=== PATIENT | female | born 1990 | race Caucasian/White ===

== ENCOUNTER 2018-10-03 23:55 | Emergency (ER) | payer MEDICAID ==
--- NOTE | 2018-10-04 00:46 | EDM.PDOC ---
ED HPI GENERAL MEDICAL PROBLEM - General Chief Complaint: General Stated Complaint: ALLERGIC REACTION TO BLACK MOLD Time Seen by Provider: 10/04/18 00:00 Source of Information: Reports: Patient History Limitations: Reports: No Limitations - History of Present Illness INITIAL COMMENTS - FREE TEXT/NARRATIVE: Patient comes into the emergency department with complain of mold exposure. Patient states that she was mold exposure in her rental property. That they recently moved in. She does not believe the house was inspected correctly prior to moving and they were not notified of any mold concerns. However shortly after moving into the home they noticed upper respiratory symptoms including runny nose, congestion, sore throat, wheezing, and the patient states that she' s had confusion intermittently. The patient's significant other did get checked out in the clinic for mold-related incident as well. Patient denies any shortness of breath, chest pain, numbness, tingling, headache, or blurred vision. Onset: Gradual Generalized Pain Score (Numeric/FACES): 6 - Related Data Allergies Allergy/AdvReac Type Severity Reaction Status Date / Time Penicillins Allergy Other Verified 10/03/18 23:56 Home Meds: Home Meds . [Unable to Verify Home Med List] 10/03/18 [History] Past Medical History Musculoskeletal History: Reports: Fibromyalgia, Other (See Below) Other Musculoskeletal History: left knee problems Social & Family History - Tobacco Use Smoking Status *Q: Current Every Day Smoker Years of Tobacco use: 15 Packs/Tins Daily: 0.2 ED ROS GENERAL - Review of Systems Review Of Systems: See Below Constitutional: Reports: No Symptoms HEENT: Reports: No Symptoms Respiratory: Reports: Pleuritic Chest Pain, Cough, Sputum Cardiovascular: Reports: No Symptoms Endocrine: Reports: No Symptoms GI/Abdominal: Reports: No Symptoms : Reports: No Symptoms Musculoskeletal: Reports: No Symptoms Skin: Reports: No Symptoms Neurological: Reports: No Symptoms Psychiatric: Reports: No Symptoms Hematologic/Lymphatic: Reports: No Symptoms Immunologic: Reports: No Symptoms ED EXAM, GENERAL - Physical Exam Exam: See Below Exam Limited By: No Limitations General Appearance: Alert, WD/WN, No Apparent Distress Head: Atraumatic, Normocephalic Neck: Normal Inspection, Supple, Non-Tender Respiratory/Chest: No Respiratory Distress, Lungs Clear, Normal Breath Sounds, No Accessory Muscle Use, Chest Non-Tender Cardiovascular: Normal Peripheral Pulses, Regular Rate, Rhythm, No Edema, No Murmur Peripheral Pulses: 3+: Radial (L), Radial (R) GI/Abdominal: Normal Bowel Sounds, Soft, No Distention Extremities: Normal Inspection, Normal Range of Motion, Non-Tender, Normal Capillary Refill Neurological: Alert, Oriented, Normal Gait Psychiatric: Normal Affect, Normal Mood Skin Exam: Warm, Dry, Intact, Normal Color Course - Vital Signs Last Recorded V/S: Last Vital Signs Temp 36.9 C 10/03/18 23:57 Pulse 92 10/03/18 23:57 Resp 16 10/03/18 23:57 BP 125/84 10/03/18 23:57 Pulse Ox 99 10/03/18 23:57 Departure - Departure Time of Disposition: 12:30 Disposition: Home, Self-Care 01 Condition: Good Clinical Impression: Mold exposure - Discharge Information *PRESCRIPTION DRUG MONITORING PROGRAM REVIEWED*: Not Applicable *COPY OF PRESCRIPTION DRUG MONITORING REPORT IN PATIENT SARABJIT: Not Applicable Instructions: Allergies, Adult Referrals: PCP,Unobtain [Primary Care Provider] - Additional Instructions: 1. clean the area of mold 2. take an antihistamine 3. Remove yourself from the building when possible 4. Try and ventilate the area with fans and keep the window open 5. Follow up with PCP - Assessment/Plan Assessment:: 1. mold exposure Plan: 1. education regarding ways to reduce mold including cleaning, ventilation, moving, talking to the landlord and taking an antihistamine daily 2. All questions and concerns answered prior to discharge
== END 2018-10-04 00:53 | disposition home or self-care (01) ==
LOC: VM.ED 23:55
DX: Z77.120 Contact with and (suspected) exposure to mold (toxic) (principal); F17.210 Nicotine dependence, cigarettes, uncomplicated; Z88.0 Allergy status to penicillin
CPT/HCPCS: 99282-GF; 99283

== ENCOUNTER 2018-12-27 15:07 | Emergency (ER) | payer MEDICAID ==
--- NOTE | 2018-12-27 15:59 | EDM.PDOC ---
ED HPI GENERAL MEDICAL PROBLEM - General Chief Complaint: General Stated Complaint: TOOTH INFECTIONS Time Seen by Provider: 12/27/18 15:25 Source of Information: Reports: Patient History Limitations: Reports: No Limitations - History of Present Illness INITIAL COMMENTS - FREE TEXT/NARRATIVE: Patient comes in the emergency department with infected tooth. Patient went to the dentist today however was not able to get an appointment. They advised her to go to the emergency department and get a medication for the weekend so she can have her tooth extracted early next week. Patient presents here for medication management. Patient states that she has had a bad right upper mouth tooth for some time it's progressively gotten worse. Over the course of last week she's noticed increased swelling pain and discomfort. She denies having any fever, chills, nausea or vomiting. She does state that she has had an upset stomach today but she is not eaten because of the discomfort in her mouth. Onset: Sudden Improves with: Reports: Rest Worsens with: Reports: Cold Therapy, Eating Associated Symptoms: Reports: No Other Symptoms - Related Data Allergies Allergy/AdvReac Type Severity Reaction Status Date / Time Penicillins Allergy Other Verified 10/03/18 23:56 Home Meds: Home Meds Clindamycin HCl [Cleocin HCl] 300 mg PO Q8H 5 Days #15 capsule 12/27/18 [Rx] Ketorolac [Toradol] 10 mg PO Q6H PRN #20 tab 12/27/18 [Rx] Past Medical History Musculoskeletal History: Reports: Fibromyalgia, Other (See Below) Other Musculoskeletal History: left knee problems ED ROS GENERAL - Review of Systems Review Of Systems: See Below Constitutional: Reports: No Symptoms HEENT: Reports: Dental Pain. Denies: Ear Pain, Hearing Loss, Nosebleed, Throat Swelling Respiratory: Reports: No Symptoms Cardiovascular: Reports: No Symptoms Musculoskeletal: Reports: No Symptoms Skin: Reports: No Symptoms Neurological: Reports: No Symptoms ED EXAM, GENERAL - Physical Exam Exam: See Below Exam Limited By: No Limitations General Appearance: Alert, WD/WN, No Apparent Distress Eye Exam: Bilateral Eye: EOMI, PERRL Ears: Normal External Exam, Normal Canal, Hearing Grossly Normal, Normal TMs Nose: Normal Inspection, Normal Mucosa Throat/Mouth: Other (right upper mouth tooth decay with swollen tissue incisor tooth. Decay with broken tooth noted next to it. no bleeding or pus noted. Foul odor noted ) Head: Atraumatic, Normocephalic Neck: Normal Inspection, Supple, Non-Tender Respiratory/Chest: No Respiratory Distress, Lungs Clear, Normal Breath Sounds, No Accessory Muscle Use, Chest Non-Tender Neurological: Alert, Oriented Psychiatric: Normal Affect, Normal Mood Skin Exam: Warm, Dry, Intact Departure - Departure Time of Disposition: 16:00 Disposition: Home, Self-Care 01 Clinical Impression: Tooth infection - Discharge Information *PRESCRIPTION DRUG MONITORING PROGRAM REVIEWED*: Not Applicable *COPY OF PRESCRIPTION DRUG MONITORING REPORT IN PATIENT SARABJIT: Not Applicable Prescriptions: Clindamycin HCl [Cleocin HCl] 300 mg PO Q8H 5 Days #15 capsule Ketorolac [Toradol] 10 mg PO Q6H PRN #20 tab PRN Reason: Pain Instructions: Clindamycin capsules, Dental Abscess, Ketorolac tablets, Preventive Dental Care, Adult Referrals: PCP,None [Primary Care Provider] - Forms: ED Department Discharge Additional Instructions: 1. rest 2. increase water intake 3. follow up with the dentist next week as you have scheduled already 4. Take all the antibiotics as prescribed 5. Take a probiotic when taking an antibiotic. 6. Call with any questions you have - Problem List Review Problem List Initiated/Reviewed/Updated: Yes - Assessment/Plan Assessment:: 1. tooth infection/abscess Plan: 1. antibiotic and pain medication provided. 2. education provided regarding follow up
== END 2018-12-27 16:10 | disposition home or self-care (01) ==
LOC: VM.ED 15:07
DX: K04.7 Periapical abscess without sinus (principal); Z88.0 Allergy status to penicillin
CPT/HCPCS: 99282

== ENCOUNTER 2019-01-29 21:53 | Emergency (ER) | payer MEDICAID ==
[2019-01-29] MEDS ORDERED: Ondansetron 4 MG Tab.DIS PO ONE (22:07)
[2019-01-29] MEDS ORDERED: Ondansetron 4 MG/2 ML SDV IVPUSH ONE (22:10)
[2019-01-29] MEDS ORDERED: Sodium Chloride 0.9% 10 ML Syringe FLUSH PRN (22:10)
[2019-01-29] MEDS ORDERED: Sodium Chloride 0.9% 1,000 ML IV ONE (22:10)
[2019-01-29 23:09] LABS: ANION GAP 17.8 mmol/L (10-20); CHLORIDE,CL 104 mmol/L (98-107); SODIUM,NA 142 mmol/L (136-145)
[2019-01-29] MEDS ORDERED: LORazepam 1 MG Tab PO ONE (23:42)
--- NOTE | 2019-01-30 06:28 | EDM.PDOC ---
ED HPI GENERAL MEDICAL PROBLEM - General Chief Complaint: General Time Seen by Provider: 01/29/19 22:00 Source of Information: Reports: Patient History Limitations: Reports: No Limitations - History of Present Illness INITIAL COMMENTS - FREE TEXT/NARRATIVE: presents to ER with numerous complaints. She has a history of bilateral ventral hernias and is scheduled to see a surgeon for this later this month. She states that her child has been ill with nausea, vomiting, and diarrhea and she has been having to pick her up/lift her which she is not supposed to do, causing increased pain in the areas of the hernias. She states that she too has been having loose stools, nausea and vomiting. She states that she has been chill and fatigued. She states that she in anxious due to the thought of her upcoming hernia surgery. She has been seen in clinic for this hernia/abdominal pain numerous times and has had a CT scan of her abdomen recently which showed the hernias but was negative for other pathology. Onset: Today Onset Date: 01/30/19 Location: Reports: Abdomen, Generalized Quality: Reports: Ache Severity: Moderate Associated Symptoms: Reports: Diaphoresis, Fever/Chills, Nausea/Vomiting Abdominal Pain Score (Numeric/FACES): 6 - Related Data Allergies Allergy/AdvReac Type Severity Reaction Status Date / Time Penicillins Allergy Other Verified 01/29/19 22:51 Home Meds: Home Meds Cyclobenzaprine [Flexeril] 10 mg PO TID PRN 01/29/19 [History] Ibuprofen [Advil] 200 mg PO Q4H PRN 01/29/19 [History] Melatonin 3 mg PO BEDTIME PRN 01/29/19 [History] Multivitamin [Daily Multiple Vitamin] 1 each PO DAILY 01/29/19 [History] Past Medical History Gastrointestinal History: Reports: Other (See Below) Other Gastrointestinal History: Double abdominal hernias - needs surgery Musculoskeletal History: Reports: Fibromyalgia, Other (See Below) Other Musculoskeletal History: left knee problems Social & Family History - Tobacco Use Smoking Status *Q: Current Every Day Smoker Years of Tobacco use: 5 Packs/Tins Daily: 0.3 ED ROS GENERAL - Review of Systems Review Of Systems: See Below Constitutional: Reports: Fever, Chills, Fatigue HEENT: Reports: No Symptoms Respiratory: Reports: No Symptoms Cardiovascular: Reports: No Symptoms Endocrine: Reports: No Symptoms GI/Abdominal: Reports: No Symptoms : Reports: No Symptoms Musculoskeletal: Reports: No Symptoms Skin: Reports: No Symptoms Neurological: Reports: No Symptoms Psychiatric: Reports: No Symptoms Hematologic/Lymphatic: Reports: No Symptoms Immunologic: Reports: No Symptoms ED EXAM, GENERAL - Physical Exam Exam: See Below Exam Limited By: No Limitations General Appearance: Alert, WD/WN, No Apparent Distress Throat/Mouth: Normal Inspection, Normal Lips, Normal Teeth, Normal Gums, Normal Oropharynx, Normal Voice, No Airway Compromise Head: Atraumatic, Normocephalic Neck: Normal Inspection, Supple, Non-Tender, Full Range of Motion Respiratory/Chest: No Respiratory Distress, Lungs Clear, Normal Breath Sounds, No Accessory Muscle Use, Chest Non-Tender Cardiovascular: Normal Peripheral Pulses, Regular Rate, Rhythm, No Edema, No Gallop, No JVD, No Murmur, No Rub Peripheral Pulses: 4+: Radial (R) GI/Abdominal: Normal Bowel Sounds, Soft, No Distention, No Mass, Tender, Other ( abdomen obese, otherwise negative abdominal exam. No rebound or guarding.). No : Guarding, Rigid, Rebound, Mass (Female) Exam: Deferred Rectal (Female) Exam: Deferred Back Exam: Normal Inspection, Full Range of Motion Extremities: Normal Inspection, Normal Range of Motion, Non-Tender, No Pedal Edema Neurological: Alert, Oriented, CN II-XII Intact Skin Exam: Warm, Dry, Intact Course - Vital Signs Last Recorded V/S: Last Vital Signs Temp 37.2 C 01/29/19 22:00 Pulse 99 01/29/19 22:00 Resp 16 01/29/19 22:00 BP 132/80 01/29/19 22:00 Pulse Ox 99 01/29/19 22:00 - Orders/Labs/Meds Orders: Active Orders 24 hr Category Date Time Status EKG Documentation Completion [RC] STAT Care 01/29/19 21:59 Active Abdomen Series w Chest 1V [CR] Stat Exams 01/29/19 22:00 Taken Peripheral IV Insertion Adult [OM.PC] Routine Oth 01/29/19 22:10 Ordered Labs: Laboratory Tests 01/29/19 01/29/19 01/29/19 Range/Units 22:29 22:29 22:29 WBC (4.0-10.0) x10^3/uL RBC (4.00-5.50) x10^6/uL Hgb (12.0-16.0) g/dL Hct (33.0-47.0) % MCV (78.0-93.0) fL MCH (26.0-32.0) pg MCHC (32.0-36.0) g/dL RDW Coeff of Ting (10.0-15.0) % Plt Count (130-400) x10^3/uL Neut % (Auto) (50.0-80.0) % Lymph % (Auto) (25.0-50.0) % Pickett % (Auto) (2.0-11.0) % Eos % (Auto) (0.0-4.0) % Baso % (Auto) (0.2-1.2) % PT 10.3 (10.0-12.8) SEC INR 0.9 L (2.0-3.5) D-Dimer, Quantitative < 0.19 (<=0.58) mg/LFEU Sodium 142 (136-145) mmol/L Potassium 3.8 (3.5-5.1) mmol/L Chloride 104 (98-107) mmol/L Carbon Dioxide 24 (21-32) mmol/L Anion Gap 17.8 (10-20) mmol/L BUN 17 (7-18) mg/dL Creatinine 0.9 (0.55-1.02) mg/dL Est Cr Clr Drug Dosing 78.67 mL/min Estimated GFR (MDRD) > 60 Glucose 89 (74-106) mg/dL Lactic Acid (0.4-2.0) mmol/L Calcium 9.1 (8.5-10.1) mg/dL Corrected Calcium 9.18 (8.5-10.1) mg/dL Phosphorus 3.2 (2.6-4.7) mg/dL Magnesium 1.8 (1.8-2.4) mg/dL Total Bilirubin 0.7 (0.2-1.0) mg/dL AST 12 L (15-37) U/L ALT 27 (14-59) U/L Alkaline Phosphatase 39 L (46-116) U/L Troponin I < 0.017 (<=0.056) ng/mL C-Reactive Protein < 0.2 (<=0.9) mg/dL Total Protein 7.4 (6.4-8.2) g/dL Albumin 3.9 (3.4-5.0) g/dL Globulin 3.5 Albumin/Globulin Ratio 1.11 TSH, Ultra Sensitive 7.998 H (0.358-3.74) uIU/mL 01/29/19 01/29/19 Range/Units 22:29 22:29 WBC 7.0 (4.0-10.0) x10^3/uL RBC 4.66 (4.00-5.50) x10^6/uL Hgb 14.8 (12.0-16.0) g/dL Hct 42.5 (33.0-47.0) % MCV 91.2 (78.0-93.0) fL MCH 31.8 (26.0-32.0) pg MCHC 34.8 (32.0-36.0) g/dL RDW Coeff of Ting 11.9 (10.0-15.0) % Plt Count 205 (130-400) x10^3/uL Neut % (Auto) 58.4 (50.0-80.0) % Lymph % (Auto) 30.3 (25.0-50.0) % Pickett % (Auto) 8.9 (2.0-11.0) % Eos % (Auto) 2.1 (0.0-4.0) % Baso % (Auto) 0.3 (0.2-1.2) % PT (10.0-12.8) SEC INR (2.0-3.5) D-Dimer, Quantitative (<=0.58) mg/LFEU Sodium (136-145) mmol/L Potassium (3.5-5.1) mmol/L Chloride (98-107) mmol/L Carbon Dioxide (21-32) mmol/L Anion Gap (10-20) mmol/L BUN (7-18) mg/dL Creatinine (0.55-1.02) mg/dL Est Cr Clr Drug Dosing mL/min Estimated GFR (MDRD) Glucose (74-106) mg/dL Lactic Acid 0.8 (0.4-2.0) mmol/L Calcium (8.5-10.1) mg/dL Corrected Calcium (8.5-10.1) mg/dL Phosphorus (2.6-4.7) mg/dL Magnesium (1.8-2.4) mg/dL Total Bilirubin (0.2-1.0) mg/dL AST (15-37) U/L ALT (14-59) U/L Alkaline Phosphatase (46-116) U/L Troponin I (<=0.056) ng/mL C-Reactive Protein (<=0.9) mg/dL Total Protein (6.4-8.2) g/dL Albumin (3.4-5.0) g/dL Globulin Albumin/Globulin Ratio TSH, Ultra Sensitive (0.358-3.74) uIU/mL Meds: Medications Discontinued Medications Generic Name Dose Route Start Last Admin Trade Name Freq PRN Reason Stop Dose Admin Sodium Chloride 1,000 mls @ 1,000 mls/hr 01/29/19 22:10 01/29/19 22:29 Normal Saline IV 01/29/19 23:09 1,000 mls/hr .BOLUS ONE Administration Lorazepam 1 mg 01/29/19 23:42 01/29/19 23:45 Ativan PO 01/29/19 23:43 Not Given ONETIME ONE Ondansetron HCl 4 mg 01/29/19 22:07 Zofran Odt PO 01/29/19 22:08 ONETIME ONE Ondansetron HCl 4 mg 01/29/19 22:10 01/29/19 22:29 Zofran IVPUSH 01/29/19 22:11 4 mg ONETIME ONE Administration Sodium Chloride 10 ml 01/29/19 22:10 Saline Flush FLUSH ASDIRECTED PRN Keep Vein Open Departure - Departure Time of Disposition: 00:10 Disposition: Home, Self-Care 01 Condition: Good Clinical Impression: Hernia, Gastroenteritis - Discharge Information Instructions: Hernia, Adult, Viral Gastroenteritis, Adult, [id number] Referrals: Lise Shen MD [Primary Care Provider] - Forms: ED Department Discharge Additional Instructions: Home to rest. Tylenol and ibuprofen for discomfort. It is important you minimize any physical activity/lifting if at all possible. - My Orders Last 24 Hours: My Active Orders 01/29/19 21:59 EKG Documentation Completion [RC] STAT 01/29/19 22:00 Abdomen Series w Chest 1V [CR] Stat 01/29/19 22:10 Peripheral IV Insertion Adult [OM.PC] Routine - Assessment/Plan Last 24 Hours: My Active Orders 01/29/19 21:59 EKG Documentation Completion [RC] STAT 01/29/19 22:00 Abdomen Series w Chest 1V [CR] Stat 01/29/19 22:10 Peripheral IV Insertion Adult [OM.PC] Routine Plan: Home to rest. Tylenol and ibuprofen for discomfort. It is important you minimize any physical activity/lifting if at all possible
--- NOTE | 2019-01-30 08:55 | CR ---
[id number] RAD/RAD Abdomen 3V Exam: RAD Abdomen 3V Clinical Data: CHEST PAIN ABDOMINAL PAIN. COMPARISON: CORRELATION IS MADE WITH THE CAT SCAN OF JANUARY 27, 2019. FINDINGS: There is no bowel obstruction. There is minimal small bowel distention. There is no free air. The gallbladder has been removed. The lungs are clear. The cardiomediastinal contour is normal. IMPRESSION: NO ACUTE PLAIN FILM ABNORMALITY. Nestor Corrigan MD 01/30/19 0853 Thank you for allowing us to participate in the care of your patient.
== END 2019-01-30 00:10 | disposition home or self-care (01) ==
LOC: VM.ED 21:53
DX: K46.9 Unspecified abdominal hernia without obstruction or gangrene (principal); K52.9 Noninfective gastroenteritis and colitis, unspecified; F17.210 Nicotine dependence, cigarettes, uncomplicated; Z79.899 Other long term (current) drug therapy; Z88.0 Allergy status to penicillin
CPT/HCPCS: 36415; 74022; 80053; 83605; 83735; 84100; 84443; 84484; 85025; 85379; 85610; 86140; 87804; 87804-59; 93005; 96361; 96374; 99284-25; J2405; J7030

== ENCOUNTER 2022-12-30 14:04 | Emergency (ER) | payer MEDICAID | END 2022-12-30 16:22 | disposition home or self-care (01) | LOC: VM.ED 14:04 | DX: T74.91XA Unspecified adult maltreatment, confirmed, initial encounter (principal); S70.12XA Contusion of left thigh, initial encounter; S70.11XA Contusion of right thigh, initial encounter; S80.11XA Contusion of right lower leg, initial encounter; S40.021A Contusion of right upper arm, initial encounter; S60.211A Contusion of right wrist, initial encounter; S50.11XA Contusion of right forearm, initial encounter; S50.12XA Contusion of left forearm, initial encounter; Z88.0 Allergy status to penicillin; Y04.0XXA Assault by unarmed brawl or fight, initial encounter | CPT/HCPCS: 72192; 72220; 73130-LT; 99284 ==

== ENCOUNTER 2023-05-23 08:31 | Emergency (ER) | payer MEDICAID ==
[2023-05-23 09:13] LABS: AMPHETAMINES SCREEN, URINE NEGATIVE (NEGATIVE); BARBITURATE SCREEN,URINE NEGATIVE (NEGATIVE)
[2023-05-23 09:14] LABS: BENZODIAZEPINES SCREEN,URINE POSITIVE (NEGATIVE); BUPRENORPHINE SCREEN,URINE NEGATIVE (NEGATIVE); COCAINE METABOLITES,URINE NEGATIVE (NEGATIVE); METHADONE SCREEN, URINE NEGATIVE (NEGATIVE); METHAMPHETAMINE SCREEN, URINE NEGATIVE (NEGATIVE); OXYCODONE SCREEN,URINE NEGATIVE (NEGATIVE); PCP SCREEN,URINE NEGATIVE (NEGATIVE); THC SCREEN,URINE 50 NG/ML POSITIVE (NEGATIVE)
[2023-05-23 09:43] VITALS: BP 132/83; PULSE 88
== END 2023-05-23 10:14 | disposition home or self-care (01) ==
LOC: VM.ED 08:31
DX: T74.91XA Unspecified adult maltreatment, confirmed, initial encounter (principal); Z88.0 Allergy status to penicillin
CPT/HCPCS: 80305-QW; 99283; 99284

== ENCOUNTER 2023-07-12 12:57 | Emergency (ER) | payer MEDICAID ==
[2023-07-12 13:20] LABS: BASOPHILS PERCENT AUTO 0.6 % (0.2-1.2); EOSINOPHILS PERCENT AUTO 1.1 % (0.0-4.0); HEMATOCRIT 36.1 % (33.0-47.0); HEMOGLOBIN 11.9 g/dL (12.0-16.0); LYMPHOCYTES ABSOLUTE AUTO 0.9 x10^3/uL (1.0-4.8); LYMPHOCYTES PERCENT AUTO 26.1 % (25.0-50.0); MEAN CORPUSCULAR HEMOGLOBIN 29.5 pg (26.0-32.0); MEAN CORPUSCULAR VOLUME 89.4 fL (78.0-93.0); MONOCYTES ABSOLUTE AUTO 0.3 x10^3/uL (0.0-0.8); MONOCYTES PERCENT AUTO 9.5 % (2.0-11.0); NEUTROPHILS ABSOLUTE AUTO 2.2 x10^3/uL (1.8-7.7); NEUTROPHILS PERCENT AUTO 62.7 % (50.0-80.0); PLATELET COUNT,PLT 200 x10^3/uL (130-400); RED BLOOD CELL COUNT 4.04 x10^6/uL (4.00-5.50); WHITE BLOOD CELL COUNT,WBC 3.5 x10^3/uL (4.0-10.0)
[2023-07-12 13:45] LABS: A/G RATIO 1.19; ALANINE AMINOTRANSFERASE,ALT 48 U/L (14-59); ALBUMIN 3.7 g/dL (3.4-5.0); ALKALINE PHOSPHATASE 77 U/L (46-116); ASPARTATE AMNIOTRANSFERASE,AST 33 U/L (15-37); BILIRUBIN TOTAL 0.9 mg/dL (0.2-1.0); BLOOD UREA NITROGEN,BUN 7 mg/dL (7-18); C-REACTIVE PROTEIN 0.06 mg/dL (<=0.30); CARBON DIOXIDE,CO2 29 mmol/L (21-32); CHLORIDE,CL 104 mmol/L (98-107); CREATININE 0.8 mg/dL (0.55-1.02); GLUCOSE RANDOM 84 mg/dL (70-99); POTASSIUM,K 4.1 mmol/L (3.5-5.1); PROTEIN TOTAL,TP 6.8 g/dL (6.4-8.2); SODIUM,NA 143 mmol/L (136-145)
[2023-07-12 13:47] LABS: ANION GAP 14.1 mmol/L (5-15); ESTIMATED GFR 100 mL/min (>=60)
[2023-07-12 14:00] LABS: APPEARANCE,URINE CLEAR (CLEAR); BILIRUBIN,URINE NEGATIVE (NEGATIVE); COLOR,URINE YELLOW (YELLOW); GLUCOSE,URINE NEGATIVE (NEGATIVE); KETONES,URINE NEGATIVE (NEGATIVE); LEUKOCYTE ESTERASE,URINE NEGATIVE (NEGATIVE); NITRITE,URINE NEGATIVE (NEGATIVE); OCCULT BLOOD,URINE NEGATIVE (NEGATIVE); PROTEIN,URINE NEGATIVE (NEGATIVE); UROBILINOGEN,URINE 0.2 EU/dL (0.2)
== END 2023-07-12 14:21 | disposition home or self-care (01) ==
LOC: VM.ED 12:57
DX: E16.2 Hypoglycemia, unspecified (principal); Z88.0 Allergy status to penicillin
CPT/HCPCS: 36415; 80053; 81003; 82947; 85025; 86140; 99284